=== PATIENT | male | born 1965 | race Two or more races ===

== ENCOUNTER 2021-10-21 01:42 | Emergency (ER) | payer OTHER ==
[~2021-10-21] VITALS: Ht 177.8 cm; Wt 113.4 kg
[2021-10-21] MEDS ORDERED: ZOFRAN8 MG PO (07:36)
[2021-10-21] MEDS ORDERED: PEPCID40 MG PO (07:36)
== END 2021-10-21 07:49 ==
LOC: ER 01:42
DX: F10.129 Alcohol abuse with intoxication, unspecified (principal); F12.929 Cannabis use, unspecified with intoxication, unspecified; I10 Essential (primary) hypertension